=== PATIENT | female | born 1945 | race Caucasian/White ===

== ENCOUNTER → 2018-05-08 | Outpatient (REF) | payer MEDICARE ==
[2018-05-08 13:59] LABS: MALB URINE SIEMENS 15.6 MG/L
[2018-05-08 14:01] LABS: MAU/CREAT RATIO 14.6 MCG/MG (0.0-30.0)
== END ==
LOC: M LAB REF 13:04
DX: E11.9 Type 2 diabetes mellitus without complications (principal)
CPT/HCPCS: 82043

== ENCOUNTER → 2020-01-21 | Outpatient (CLI) | payer MEDICARE | LOC: M LABSMTC 13:16 | PROVIDERS: ATTEND Ophthalmology | DX: Z01.818 Encounter for other preprocedural examination (principal); Z11.59 Encounter for screening for other viral diseases ==

== ENCOUNTER → 2020-02-04 | Outpatient (CLI) | payer MEDICARE | LOC: M LABSMTC 10:05 | PROVIDERS: ATTEND Ophthalmology | DX: Z11.59 Encounter for screening for other viral diseases (principal); Z20.828 Contact with and (suspected) exposure to other viral communicable diseases | CPT/HCPCS: C9803; U0003 ==

== ENCOUNTER → 2020-12-01 | Outpatient (CLI) | payer MEDICARE ==
--- NOTE | 2020-12-01 14:02 | REP ---
INDICATION: PAIN IN RIGHT SHOULDER. COMPARISON: None. TECHNIQUE: Three views of the right shoulder were performed. FINDINGS: The acromioclavicular and glenohumeral relationships are within normal limits. There is no acute fracture or destructive osseous lesion. Calcifications are seen in the soft tissues just lateral to the greater humeral tuberosity. IMPRESSION: Soft tissue calcifications, as described above, possibly secondary to either chronic calcific subdeltoid bursitis or chronic calcific supraspinatus tendinitis. <Electronically signed by Parth Henriquez > 12/01/20 1418
--- NOTE | 2020-12-01 14:06 | REP ---
INDICATION: PAIN IN RIGHT SHOULDER. No history of trauma whatsoever COMPARISON: None. TECHNIQUE: Eight views FINDINGS: Hypertrophic degenerative facet and uncovertebral joint changes are present at every level bilaterally. There is evidence of limitation of extension radiographically. There is no evidence of limitation of flexion radiographically. There is moderate posterior disc space narrowing at every level. Vertebral body height and alignment is within normal limits. The facet joints appear well aligned bilaterally. There is evidence of C3-4 and 4 5 right-sided foraminal narrowing. IMPRESSION: Chronic changes as described above. Although this plain radiographic evaluation of the cervical spine shows no evidence of a fracture, it should be remembered that CT is much more sensitive than plain radiography of the C-spine in detecting fractures. If this examination was ordered to rule out a fracture then CT of the cervical spine is recommended. <Electronically signed by Parth Henriquez > 12/01/20 [id number]
== END ==
LOC: M ADAMS 13:12
PROVIDERS: ATTEND Family Medicine
DX: M75.51 Bursitis of right shoulder (principal)

== ENCOUNTER → 2020-12-14 | Outpatient (REF) | payer MEDICARE ==
[2020-12-14 16:31] LABS: CREATININE FOR GFR 1.25 MG/DL (0.55-1.30); GLOMERULAR FILTRATION RATE 44.6 (>39); POTASSIUM SERUM 4.9 MEQ/L (3.5-5.1)
[2020-12-14 18:42] LABS: HEMOGLOBIN A1c 7.3 %
== END ==
LOC: M PLALAB 15:19
PROVIDERS: ATTEND Nurse Practitioner Family
DX: E11.22 Type 2 diabetes mellitus with diabetic chronic kidney disease (principal)

== ENCOUNTER → 2020-12-30 | Outpatient (CLI) | payer MEDICARE ==
--- NOTE | 2020-12-30 10:21 | REPMRS ---
Patient History The patient states she has not had a clinical breast exam in over a year. Patient is postmenopausal and has history of endometrial cancer at age 65. No known family history of cancer. Took hormonal contraceptives for 4 years. Took unspecified hormones for 1 year. Pfizer vaccine 08/08/20 left arm. 08/22/20 left arm. Patient states no breast complaints today. Patient has signed MRS History Sheet. Digital Woman Screen Mammo: December 30, 2020 - Exam #: [id number] Bilateral CC and MLO view(s) were taken. Technologist: RT Isauro Prior study comparison: February 19, 2019, bilateral digital mammo screening bilat, performed at [facility]. February 06, 2018, bilateral digital mammo screening bilat, performed at [facility]. February 01, 2017, bilateral digital mammo screening bilat, performed at [facility]. FINDINGS: There are scattered fibroglandular densities. The Volpara volumetric breast density category is:B. There is a well-circumscribed 5 mm nodular neodensity in the lateral aspect of the left breast which merits further evaluation. This is not seen with confidence on the orthogonal view. There has been no other change in the appearance of the mammogram from the prior studies. There is a mild amount of scattered fibroglandular density which is fairly symmetric. There is no other interval development of dominant mass, architectural distortion, or grouped microcalcification suggestive of malignancy. 3-D tomosynthesis shows no additional findings. Assessment: BI-RADS/ACR category 0 mammogram, Incomplete. Need additonal imaging evaluation and/or prior mammograms for comparison. Recommendation Ultrasound and special view mammogram of the left breast. This patient's [facility] Lifetime Breast Cancer Risk is estimated at 4.3 %. This mammogram was interpreted with the aid of an FDA-approved computer-aided dectection system. Electronically Signed By: Carlos Abbott MD 12/30/20 [id number]
--- NOTE | 2020-12-30 10:35 | DEXAMM ---
INDICATION: Z13.820 SCR FOR OSTEOPOROSIS. Left hip replacement. COMPARISON: Comparison study dates are June 11, 2019 and November 05, 2003.. TECHNIQUE: Bone density was measured using dual-energy x-ray absorptionmetry (DEXA). FINDINGS: AP SPINE L1-L4 BMD 1.213 g/cm2 Young Adult T-Score 0.3 Age Matched Z-Score 2.0. RT FEMUR, TOTAL BMD 0.979 g/cm2 Young Adult T-Score -0.2 Age Matched Z-Score 1.5. RT NECK BMD 0.965 g/cm2 Young Adult T-Score -0.5 Age Matched Z-Score 1.4. IMPRESSION: There is normal bone density of the spine. There is normal bone density of the right hip. The density of the spine has decreased 3.1% since the initial exam on November 05, 2003. The density of the spine decreased 3.3% since most recent exam on June 11, 2019. The density of the right hip has decreased 12.8% since the initial exam on November 05, 2003. The density of the right hip has increased 1.5% since the most recent exam on June 11, 2019. FOLLOW-UP: Recommendation for the next bone density exam: 5 years. <Electronically signed by Carlos Abbott > 12/30/20 1032
== END ==
LOC: M WHC 08:57
PROVIDERS: ATTEND Family Medicine
DX: Z12.31 Encounter for screening mammogram for malignant neoplasm of breast (principal); Z13.820 Encounter for screening for osteoporosis; M81.0 Age-related osteoporosis without current pathological fracture

== ENCOUNTER → 2021-01-18 | Outpatient (CLI) | payer MEDICARE ==
--- NOTE | 2021-01-18 16:03 | REP ---
INDICATION: ADDITIONAL VIEWS LT BREAST. COMPARISON: Comparison mammography is reviewed from December 30, 2020, February 19, 2019, and February 06, 2018. TECHNIQUE: Magnified focal spot-compression CC, MLO, and true mL views of the left breast are obtained. 3D tomography is deployed in the true mL projection and targeted left breast sonography is performed. This mammogram was interpreted with the aid of an FDA-approved computer-aided detection system. FINDINGS: Scattered fibroglandular elements are again seen. Diagnostic images confirm the presence of a well-circumscribed 5 mm nodule in the left breast upper outer quadrant. No other suspicious mammographic finding. The Volpara volumetric breast density pattern is B. Targeted ultrasound: Targeted left breast sonography is performed 12:00 to 3:00 in the upper outer quadrant. At 1 o'clock, a simple cyst is seen measuring 5 x 4 x 4 mm, 4.2 cm from the nipple. This is felt to account for the mammographic opacity. IMPRESSION: BIRADS/ACR category 2 benign left breast mammographic and sonographic findings. Small simple cyst seen by ultrasound. This patient's [facility]rer-[facility]uzick lifetime breast cancer risk assessment score is 4.3%. RECOMMENDATION: Repeat screening mammography recommended 1 year (for women over 40). The patient letter being requested is M1. <Electronically signed by Carlos Abbott > 01/18/21 1600
== END ==
LOC: M WHC 13:26
PROVIDERS: ATTEND Family Medicine
DX: R92.8 Other abnormal and inconclusive findings on diagnostic imaging of breast (principal); Z12.31 Encounter for screening mammogram for malignant neoplasm of breast
CPT/HCPCS: 76642; 77065; G0279

== ENCOUNTER → 2023-02-12 | Outpatient (CLI) | payer MEDICARE | LOC: M WHC 10:08 | PROVIDERS: ATTEND Registered Nurse | DX: Z12.31 Encounter for screening mammogram for malignant neoplasm of breast (principal) ==

== ENCOUNTER → 2023-11-02 | Outpatient (REF) | payer MEDICARE ==
[2023-11-02 18:08] LABS: HEMOGLOBIN A1c 6.7 % (4.0-6.0)
[2023-11-02 18:19] LABS: ALBUMIN 3.4 G/DL (3.2-5.2); BILIRUBIN,TOTAL 0.3 MG/DL (0.3-1.2); CALCIUM LEVEL 9.8 MG/DL (8.3-10.6); CREATININE FOR GFR 1.4 MG/DL (0.55-1.30); GLOMERULAR FILTRATION RATE 38.8 (>39); POTASSIUM SERUM 4.7 MMOL/L (3.5-5.1); TOTAL PROTEIN 7.1 G/DL (5.7-8.2)
[2023-11-02 18:21] LABS: TOTAL 25(OH) VITAMIN D 62.9 NG/ML (20.0-100.0)
== END ==
LOC: M LAB REF 16:58
PROVIDERS: ATTEND Registered Nurse
DX: E11.22 Type 2 diabetes mellitus with diabetic chronic kidney disease (principal); N18.32 Chronic kidney disease, stage 3b; E55.9 Vitamin D deficiency, unspecified

== ENCOUNTER → 2024-02-14 | Outpatient (CLI) | payer MEDICARE | LOC: M WHC 09:09 | PROVIDERS: ATTEND Registered Nurse | DX: Z12.31 Encounter for screening mammogram for malignant neoplasm of breast (principal) ==

== ENCOUNTER → 2024-08-13 | Outpatient (CLI) | payer MEDICARE | LOC: M CARPUL 15:49 | PROVIDERS: ATTEND Registered Nurse | DX: I34.0 Nonrheumatic mitral (valve) insufficiency (principal) ==

== ENCOUNTER → 2024-08-22 | Outpatient (REF) | payer MEDICARE ==
[2024-08-22 14:35] LABS: ALBUMIN 3.6 G/DL (3.2-5.2); BILIRUBIN,TOTAL 0.4 MG/DL (0.3-1.2); CALCIUM LEVEL 9.7 MG/DL (8.3-10.6); CHOLESTEROL RISK RATIO 2.62 (<5); CREATININE FOR GFR 1.21 MG/DL (0.55-1.30); GLOMERULAR FILTRATION RATE 45.8 (>39); HDL CHOLESTEROL 66.2 MG/DL (>40); LDL CHOLESTEROL 64.8 MG/DL (<100); NON-HDL-C 107.8 MG/DL; POTASSIUM SERUM 4.6 MMOL/L (3.5-5.1); TOTAL PROTEIN 7.3 G/DL (5.7-8.2)
[2024-08-22 14:41] LABS: HEMOGLOBIN A1c 7.1 % (4.0-6.0)
== END ==
LOC: M LAB REF 12:57 → M LABDRWAD 12:57
PROVIDERS: ATTEND Registered Nurse
DX: E11.22 Type 2 diabetes mellitus with diabetic chronic kidney disease (principal); E78.2 Mixed hyperlipidemia

== ENCOUNTER → 2024-10-28 | Outpatient (CLI) | payer MEDICARE ==
[2024-10-28 19:25] LABS: ALBUMIN 3.6 G/DL (3.2-5.2); CREATININE FOR GFR 1.3 MG/DL (0.55-1.30); GLOMERULAR FILTRATION RATE 42.1 (>39); PHOSPHORUS LEVEL 3.9 MG/DL (2.4-5.1); POTASSIUM SERUM 4.4 MMOL/L (3.5-5.1)
== END ==
LOC: M ADAMS 13:41
PROVIDERS: ATTEND Internal Medicine Nephrology
DX: I12.9 Hypertensive chronic kidney disease with stage 1 through stage 4 chronic kidney disease, or unspecified chronic kidney disease (principal); E11.21 Type 2 diabetes mellitus with diabetic nephropathy; N18.32 Chronic kidney disease, stage 3b

== ENCOUNTER → 2025-02-17 | Outpatient (CLI) | payer MEDICARE | LOC: M WHC 10:03 | PROVIDERS: ATTEND Registered Nurse | DX: Z12.31 Encounter for screening mammogram for malignant neoplasm of breast (principal); R92.323 Mammographic fibroglandular density, bilateral breasts ==

== ENCOUNTER → 2025-03-24 | Outpatient (CLI) | payer MEDICARE ==
[2025-03-24 15:12] LABS: BASO # 0.1 10^3/uL (0.0-0.2); BASO % 0.8 % (0.0-1.0); EOS # 0.1 10^3/uL (0.0-0.5); EOS % 2.1 % (0.0-3.0); LYMPH # 2.3 10^3/uL (1.5-5.0); LYMPH % 36.2 % (24.0-44.0); MONO # 0.5 10^3/uL (0.0-0.8); MONO % 8.5 % (2.0-8.0); NEUTROPHILS # 3.3 10^3/uL (1.5-8.5); NEUTROPHILS % 52.1 % (36.0-66.0); PLATELET COUNT, AUTOMATED 249 10^3/uL (150-450)
[2025-03-24 15:25] LABS: ALT/SGPT 12.0 U/L (7.0-40); AST/SGOT 17.0 U/L (<34); CALCIUM LEVEL 9.5 MG/DL (8.3-10.6); CARBON DIOXIDE LEVEL 27.0 MMOL/L (20-31); CHLORIDE LEVEL 105.0 MMOL/L (98-107); CHOLESTEROL LEVEL 153.0 MG/DL (<200); CHOLESTEROL RISK RATIO 2.34 (<5); CREATININE FOR GFR 1.28 MG/DL (0.55-1.30); GLOMERULAR FILTRATION RATE 42.9 (>39); LDL CHOLESTEROL 55.7 MG/DL (<100); NON-HDL-C 87.7 MG/DL; POTASSIUM SERUM 5.1 MMOL/L (3.5-5.1); SODIUM LEVEL 140.0 MMOL/L (136-145); TRIGLYCERIDES LEVEL 160.0 MG/DL (<150)
[2025-03-24 15:37] LABS: VITAMIN B12 LEVEL 201.0 PG/ML (211-911)
[2025-03-24 15:46] LABS: CREATININE, URINE 104.2 MG/DL; MALB URINE SIEMENS 7.0 MG/L; MAU/CREAT RATIO 6.7 MCG/MG (0.0-30.0)
[2025-03-24 19:04] LABS: ESTIMATED AVERAGE GLUCOSE 177.0 MG/DL (60-110)
== END ==
LOC: M LABDRWAD 08:14
PROVIDERS: ATTEND Registered Nurse
DX: E11.22 Type 2 diabetes mellitus with diabetic chronic kidney disease (principal); E78.2 Mixed hyperlipidemia